=== PATIENT | male | born 1980 | race African-American/Black ===

== ENCOUNTER 2018-05-19 18:31 | Emergency (ER) | payer SELFPAY ==
[~2018-05-19] VITALS: Ht 185.4 cm; Wt 104.3 kg
[2018-05-19] MEDS ORDERED: CEPHALEXIN500 M1 PO (19:27)
== END 2018-05-19 19:53 | disposition home or self-care (01) ==
LOC: ED 18:31
DX: L02.811 Cutaneous abscess of head [any part, except face] (principal)